=== PATIENT | male | born 1960 | race Caucasian/White ===

== ENCOUNTER 2020-11-30 05:21 | Day surgery (SDC) | payer OTHER, BC ==
[~2020-11-30] VITALS: Ht 190.5 cm; Wt 98.2 kg
[2020-11-30] MEDS ORDERED: LIPITOR 40MG TA40 MG PO (05:59)
[2020-11-30] MEDS ORDERED: NOVOLIN N100 UNIT/1 SQ (06:00)
[2020-11-30] MEDS ORDERED: NOVOLIN R100 U/ML SQ (06:00)
[2020-11-30] MEDS ORDERED: GENTLE LAXATIVE5 MG PO (06:01)
[2020-11-30] MEDS ORDERED: BENADRYL25 M2 PO (06:01)
[2020-11-30] MEDS ORDERED: ASPIRIN 32325 MG/TAB PO (06:01)
[2020-11-30 06:07] VITALS: BP 125/85; PULSE 81; TEMP 97.9
[2020-11-30] MEDS ORDERED: NORCO 325 MG-51 TAB PO (08:44)
[2020-11-30 09:25] VITALS: BP 121/85; PULSE 75; TEMP 97
--- NOTE | 2020-11-30 09:25 | NUR ---
The patient arrived back to [facility] from the recovery room at this time. The patient appears alert and oriented and denies any pain or nausea at this time. Post operative vital signs were started at this time. The patient has three bandaids to his abodmen that appear clean, dry and intact. The patient has a scrotal support in place at this time. The patient has tried some ice chips and appeared to tolerate them well. He now agrees to try a muffin and ice water. Call light is within reach. Will continue to monitor the patient.
[2020-11-30 09:40] VITALS: BP 113/77; PULSE 74
--- NOTE | 2020-11-30 09:40 | NUR ---
The patient appeared to tolerate the food and drink well. Vital signs appear stable. Call light is within reach. Will continue to monitor the patient.
[2020-11-30 09:55] VITALS: BP 113/75; PULSE 74
--- NOTE | 2020-11-30 10:00 | NUR ---
The patient ambulated to the bathroom and appeared to tolerate the activity well. The patient voided without difficulty. The patient's IV to his right hand was removed and a pressure dressing was applied to the site. The nurse instructed the patient to get dressed and notify the staff when he is ready to review his discharged instructions.
--- NOTE | 2020-11-30 10:15 | NUR ---
Discharge instrucitons were reviewed with the patient at this time. He verbalized understanding and has no questions for the nurse at this time.
[2020-11-30 10:18] VITALS: BP 121/85; PULSE 75; TEMP 97.7
--- NOTE | 2020-11-30 10:30 | NUR ---
The patient was escorted out via wheelchair to a private vehicle by BERYL Joe. The patient's belongings and discharge paperwork were sent with him. The patient's nephew is coming to drive the patient home.
== END 2020-11-30 10:55 | disposition home or self-care (01) ==
LOC: SDCO 05:21
DX: K40.90 Unilateral inguinal hernia, without obstruction or gangrene, not specified as recurrent (principal); E10.9 Type 1 diabetes mellitus without complications; E78.5 Hyperlipidemia, unspecified; Z79.899 Other long term (current) drug therapy; Z79.4 Long term (current) use of insulin; Z88.8 Allergy status to other drugs, medicaments and biological substances; Z20.822 Contact with and (suspected) exposure to COVID-19; Z83.3 Family history of diabetes mellitus
CPT/HCPCS: C1781; J0330; J0690; J1100; J1885; J2405; J2704; J3010; J7030